=== PATIENT | male | born 1965 | race Caucasian/White ===

== ENCOUNTER 2023-01-20 04:42 | Day surgery (SDC) | payer OTHER ==
[2023-01-16 14:43] VITALS: BMI 24.3
[2023-01-20 08:30] VITALS: TEMP 98
[2023-01-20 10:50] VITALS: BP 110/60; PULSE 64; RESP 16
== END 2023-01-20 09:20 | disposition home or self-care (01) ==
LOC: JASU-ENDO 04:42
PROVIDERS: ATTEND Student in an Organized Health Care Education/Training Program
PROC: 0DBL8ZX Excision of Transverse Colon, Via Natural or Artificial Opening Endoscopic, Diagnostic (ICD-10-PCS; principal; 2023-01-20 08:00)
DX: R63.4 Abnormal weight loss (principal); D12.3 Benign neoplasm of transverse colon; K64.8 Other hemorrhoids
CPT/HCPCS: 88305-TC